=== PATIENT | female | born 1965 | race Caucasian/White ===

== ENCOUNTER 2016-05-24 13:06 | Emergency (ER) | payer MEDICARE, MEDICAID ==
[~2016-05-24] VITALS: Ht 167.6 cm; Wt 52.3 kg
[~2016-05-24 13:06] MED LIST: ALPR1TAB7 PO; DEX1 PO; DOCU-41 PO; HYDR-3797 PO; LEVO200T6 PO; LEVO25TA5 PO; OMEP40CA36 PO; OXYC-466 PO; OXYC5TAB72 PO; PHEN100C11 PO; PHN100C PO; PROM25TA14 PO; RANI150T11 PO; SCOP1PAT TD; SUMA100T2 PO; [UNRECOGNIZED DRUG - OTHER] PO
[2016-05-24 13:12] VITALS: BP 101/67; PULSE 119; RESP 18; O2SAT 97
--- NOTE | 2016-05-24 14:21 | ED.REPORT ---
HPI-Extremity Problem Lower Date of Service May 24, 2016 ED Provider: Ye Garcia MD This is a 50 year old female with a history of Hodgkins lymphoma, uterine cancer, and hypertension presenting to the emergency department complaining of left thigh pain and swelling that worsened 4 days ago. Pt reports she developed a constant itching at the site one month ago. however, 4 days ago the area became swollen, erythematous, and tender. Reports pain, fever, chills, nausea, and vomiting. Denies constipation, diarrhea, dysuria, cough, or SOB. Nursing Notes Stated Complaint: LEFT LEG PAIN Chief Complaint: Skin Rash/Abscess Nursing Notes Reviewed: Yes Allergies: Coded Allergies: carisoprodol (Verified Allergy, Severe, 01/30/09) ibuprofen (Verified Allergy, Severe, 01/30/09) Uncoded Allergies: Nonsteroidal Anti-Inflammatory Agts (Allergy, Severe, 09/23/03) Prochlorperazine (Allergy, Severe, 12/23/03) Scheduled ([thc resin oil]) PO DAILY Dexamethasone (Dexamethasone) 1 Mg Tab 4 MG PO BID Take one 4 mg tablet twice daily Levothyroxine (Levothyroxine) 25 Mcg Tablet 25 MCG PO DAILY Levothyroxine (Levothyroxine) 200 Mcg Tablet 200 MCG PO DAILY Omeprazole (Omeprazole) 40 Mg Capsule.dr 40 MG PO DAILY Phenytoin Sodium ER (Dilantin) 100 Mg Capsule 200 MG PO QPM Phenytoin Sodium Extended (Phenytoin Sodium Extended) 100 Mg Capsule 300 MG PO QAM Ranitidine (Zantac) 150 Mg Tablet 150 MG PO HS Sulfamethoxazole/Trimeth 800-160 mg (Bactrim DS) 1 Each Tablet 1 TABLET PO BID Scheduled PRN Alprazolam (Alprazolam) 1 Mg Tablet 1 MG PO TID PRN PRN For Anxiety Docusate Sodium (Colace) 100 Mg Capsule 200 MG PO BID PRN PRN For Constipation Hydroxyzine Pamoate (HydrOXYzine Pamoate) 25 Mg Capsule 25-50 MG PO Q6H PRN PRN For Nausea Promethazine (Promethazine) 25 Mg Tablet 25 MG PO DAILY PRN PRN For Nausea Scopolamine (Transderm-Scop) 1 Each Patch.td72 1 EACH TD DIRECTED PRN PRN For Nausea/Vomiting apply 1 patch every 72 hours as directed Sumatriptan Succinate (Sumatriptan Succinate) 100 Mg Tablet 100 MG PO DIRECTED PRN PRN For Headache oxyCODONE (oxyCODONE) 5 Mg Tablet 5 MG PO Q6H PRN PRN For Pain oxyCODONE-Acetaminophen 10-325 mg (oxyCODONE-Acetaminophen 10-325 mg) 1 Each Tablet 1 TABLET PO Q6H PRN PRN For Pain General Time Seen by MD: 13:50 Chief Complaint Thigh injury left Hx Obtained From: Patient Arrived By: Walk-in Onset Occurred: More than a week ago... (1 month) Symptom Duration: Since onset Location: : Thigh left Severity: Current: Moderate Pertinent Negative: Pt denies other symptoms Recent Healthcare: No recent doctor visit, No recent hospitalization Similar Sx Previous: No Past Medical History Past Medical History 1. Squamous cell carcinoma, moderately differentiated, of the cervix, clinically T2b N2 M0, or stage IIIB. 2. 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 3. Previously treated chronic anemia of iron deficiency, originally evaluated in 2009 and treated in 2012 with IV iron. 4. Gastroenterology workup in 2010 showed esophagitis, gastritis and duodenitis. No Abel's, negative colonoscopy, July 04, 2009. She has been amenorrheic since treatment for Hodgkin's disease. 5. Prior Hodgkin disease, stage IV, treated with systemic chemotherapy and radiation from 1991 to 1993. 6. History of seizure disorder with three brain tumors removed in the past. Suspected meningioma. Most recent more than five years ago. 7. Migraine. 8. Hypertension. 9. Bleeding ulcer in the past. Smoking History Unknown if Ever Smoker Ambulatory Status Independent Review of Systems Constitutional: Reports: Chills, Fever Musculoskeletal: Reports: Extremity pain, Extremity swelling Complete sys rev & neg: except as marked. Respiratory: Denies: Non-productive cough, Shortness of breath Cardiovascular: Denies: Chest pain GI: Reports: Nausea, Vomiting, Denies: Abdominal pain, Constipation, Diarrhea Physical Exam Initial Vital Signs Vital Signs (First) Date Time Temp Pulse Resp B/P Pulse Ox O2 Delivery O2 Flow Rate FiO2 05/24/16 13:12 36.6 119 18 101/67 97 Room Air Initial VS: Reviewed General/Constitutional: Well-developed, Well-nourished Head / Eyes: Atraumatic, Normocephalic, PERRL ENT: Mucous membranes moist, Conjunctiva normal, No scleral icterus Neck: Supple, Non-tender, Full range of motion Respiratory: Breath sounds normal, Clear to auscultation, No respiratory distress Cardiovascular: Regular rate & rhythm, Heart sounds normal, Intact distal pulses Abdomen / GI: Soft, Non-tender, No guarding, No rebound, No distention Upper Extremities: Vascular intact, Neuro intact, No swelling, No tenderness Skin: Warm, Dry, No cyanosis Neurologic: Alert, Oriented, Nonfocal Psychiatric: Mood/affect normal, Behavior normal, Normal thought content Lower Extremity / Pelvis / MS: Neurologic intact Left Thigh: Positive: Swelling present..., Tenderness present... Ankle / Foot: Atraumatic, Inspection NL, Full range of motion, No swelling, No erythema, Non-tender, No deformity, Neurologic intact, Vascular intact, No edema Interpretation & Diagnostics Lab Results Interpretation Result Diagram: 05/24/16 1505 05/24/16 1505 Test 05/24/16 15:05 White Blood Count 12.7th/mm3 (3.8-10.1) Red Blood Count 3.71mil/mm3 (3.90-5.20) Hemoglobin 8.3g/dL (12.0-15.6) Hematocrit 26.7% (35.0-46.0) Mean Corpuscular Volume 72.0fL (81-100) Mean Corpuscular Hemoglobin 22.4pg (27.0-35.0) Mean Corpuscular Hemoglobin Concent 31.1% (32.0-37.0) Red Cell Distribution Width 15.6% (12.3-15.4) Platelet Count 283bil/L (150-400) Neutrophils (%) (Auto) 87.4% (40-74) Lymphocytes (%) (Auto) 4.9% (14-46) Monocytes (%) (Auto) 6.5% (4-12) Eosinophils (%) (Auto) 0.6% (0-5) Basophils (%) (Auto) 0.1% (0-3) Prothrombin Time 11.5sec (8.1-12.5) Prothromb Time International Ratio 1.07ratio Sodium Level 126mEq/L (134-144) Potassium Level 3.5mEq/L (3.5-5.2) Chloride Level 88mEq/L (97-108) Carbon Dioxide Level 21mmol/L (18-29) Blood Urea Nitrogen 27mg/dL (6-24) Creatinine 1.73mg/dL (0.57-1.00) Estimat Glomerular Filtration Rate 45mL/min (>59) Glucose Level 111mg/dL (60-99) Lactic Acid Level 1.2mmol/L (0.4-2.0) Calcium Level 8.4mg/dL (8.5-10.1) Total Bilirubin 0.2mg/dL (0.0-1.2) Aspartate Amino Transf (AST/SGOT) 23U/L (0-50) Alanine Aminotransferase (ALT/SGPT) 12U/L (0-32) Alkaline Phosphatase 76U/L (25-150) Total Protein 7.4g/dL (6.4-8.4) Albumin 3.3g/dL (3.4-5.0) Re-Eval/Medical Decision Med Decision/Clinical Course 50-year-old female with left thigh swelling 6 weeks. Ultrasound ordered by primary doctor but patient decided to come here instead. Left lower extremity ultrasound ordered with no evidence of DVT or abscess. She does have swelling left thigh and mild cellulitis. No abscess on ultrasound. Patient will be treated with oral antibiotics with Bactrim with return precautions. Re-Evaluation/Progress : Time of Eval: 15:57 Re-Evaluation/Progress Note: Plan for d/c, all questions addressed Counseled Regarding: Diagnosis, Lab results, Need for follow-up, When/why to return to ED Discharge & Departure Impression: Primary Impression: Cellulitis Site of cellulitis: extremity Site of cellulitis of extremity: lower extremity Laterality: left Qualified Code: L03.116 - Cellulitis of left lower limb Disposition: Home Discharge Condition All VS Reviewed: Yes Condition: Stable Patient Instructions: Cellulitis (ED) Additional Instructions: Thank you for seeking care in the emergency department today. Take Bactrim as prescribed for cellulitis. Tylenol or ibuprofen as needed for pain and fever control. Follow-up with your primary care provider. Return to the emergency department for any new or worsening symptoms Referrals: Huber Zapien MD (PCP) Scribe Attestation Portions of this note were transcribed by Moncho Goodman. I, Dr. Garcia personally performed the history, physical exam and medical decision-making; I reviewed and confirmed the accuracy of the information in the transcribed note. Signed by: marly Holm. 05/24/2016, 15:00. Ye Garcia MD May 24, 2016 14:21 MONCHO GOODMAN May 24, 2016 14:26
[2016-05-24] MEDS ORDERED: HYDROcodone-APAP 10-325 mg PO ONE (15:15)
[2016-05-24 15:17] LABS: BASOPHILS % (AUTO) 0.1 % (0-3)
[2016-05-24 15:26] LABS: EOSINOPHILS % (AUTO) 0.6 % (0-5); MONOCYTES % (AUTO) 6.5 % (4-12); Mean Corpuscular Hemoglobin 22.4 pg (27.0-35.0); NEUTROPHILS % (AUTO) 87.4 % (40-74); Platelet Count 283 bil/L (150-400)
[2016-05-24 15:42] LABS: INR 1.07 ratio
[2016-05-24] MEDS ORDERED: Trimethoprim-Sulfa 160 mg-800 mg Tablet PO ONE (15:55)
[2016-05-24] MEDS ORDERED: SULF1TAB7 PO (15:59)
[2016-05-24 16:08] VITALS: BP 101/71; PULSE 134; O2SAT 98
[2016-05-24 16:10] VITALS: BP 101/71; PULSE 120; O2SAT 98
--- NOTE | 2016-05-24 16:18 | DRSVH ---
PROCEDURE: US VEINOUS LEG DUPLEX UNILATERAL, LEFT INDICATIONS: L leg swelling r/o dvt TECHNIQUE: Real-time imaging, as well as color and pulse Doppler interrogation, were performed of the lower extr emity deep veins from the inguinal ligament to the popliteal fossa. COMPARISON: None. FINDINGS: The deep veins are normally compressible, and free of intraluminal thrombus. Color and pu lse Doppler demonstrate normal phasic intraluminal flow. There is normal augmentation response to di stal compression maneuver. Within the area pain in the proximal left lower extremity. There is a a focus of ill-defined soft tis chin edema with infiltrating fluid. IMPRESSION: 1. No evidence of DVT. 2. Ill-defined soft tissue edema with infiltrating fluid at the level of pain. This could represent c ellulitis and/or phlegmon. Dictated by: Lolis Huertas M.D. on 05/24/2016 at 16:09 Approved by: Lolis Huertas M.D. on 05/24/2016 at 16:16
== END 2016-05-24 16:15 | disposition home or self-care (01) ==
LOC: SED 13:06
DX: L03.116 Cellulitis of left lower limb (principal); I10 Essential (primary) hypertension; Z88.6 Allergy status to analgesic agent